=== PATIENT | female | born 1985 | race Caucasian/White ===

== ENCOUNTER → 2021-07-27 12:03 | Outpatient (CLI) | payer OTHER, MEDICAID, SELFPAY ==
[2021-07-27 19:00] LABS: Add Manual Diff / Slide Review NO; Basophils Absolute Auto 0 /uL (0-100); Eosinophils Absolute Auto 100 /uL (0-450); Eosinophils Percent Auto 2.5 % (2-4); Hematocrit 42.1 % (36-46); Hemoglobin 14.3 g/dL (12.0-16.0); Lymphocytes Absolute Auto 1700 /uL (1100-4500); Lymphocytes Percent Auto 36.4 % (25-40); Mean Corpuscular HGB Conc 33.9 % (30-36); Mean Corpuscular Hemoglobin 29.8 PG (26-34); Mean Corpuscular Volume 87.8 fL (80-100); Monocytes Absolute Auto 500 /uL (0-900); Monocytes Percent Auto 10.3 % (3-14); Neutrophils Absolute Auto 2300 /uL (1500-7000); Neutrophils Percent Auto 49.8 % (50-75); Platelet Count 239 X10^3/uL (150-400); Red Blood Cell Count 4.79 X10^6/uL (4.0-5.2); Red Cell Distribution Width 12.2 % (11.6-14.8); White Blood Cell Count 4.6 X10^3/uL (4.5-11.0)
[2021-08-01 17:36] LABS: Methylmalonic Acid,Serum 191 nmol/L (0-378)
== END ==
PROVIDERS: PCP Family Medicine; Visit Provider Physician Assistant
DX: E53.8 Deficiency of other specified B group vitamins (principal)
CPT/HCPCS: 83921; 85025

== ENCOUNTER → 2021-11-11 10:57 | Outpatient (CLI) | payer OTHER, MEDICAID, SELFPAY ==
[2021-11-12 18:51] LABS: Follicle Stimulating Hormone 7.22 mIU/mL; Luteinizing Hormone 4.28 mIU/mL
[2021-11-12 19:07] LABS: TSH w/ Reflex to FT4 0.98 uIU/mL (0.47-4.68)
[2021-11-12 19:36] LABS: Vitamin B12 820 pg/mL (239-931)
[2021-11-12 19:57] LABS: Urine N gonorrhoeae NOT DETECTED
[2021-11-12 20:12] LABS: Urine Chlamydia NOT DETECTED
[2021-11-15 16:55] LABS: HIV 1 & 2 Ab/Ag 4th Gen Combo NEGATIVE (NEGATIVE); Hep C Virus Ab w/Reflex Quant NEGATIVE s/c (NEGATIVE)
[2021-11-15 18:36] LABS: HSV 2 IGG AB < 0.91 index (0.00-0.90); HSV1IGG < 0.91 index (0.00-0.90)
[2021-11-16 01:37] LABS: RPR Screen Non Reactive (Non Reactive)
== END ==
PROVIDERS: PCP Physician Assistant; Visit Provider Physician Assistant Medical
DX: L68.0 Hirsutism (principal); Z11.3 Encounter for screening for infections with a predominantly sexual mode of transmission; N94.9 Unspecified condition associated with female genital organs and menstrual cycle; E53.8 Deficiency of other specified B group vitamins
CPT/HCPCS: 82607; 83001; 83002; 84443; 86592; 86695; 86696; 86803; 87389; 87491; 87591

== ENCOUNTER → 2021-11-15 07:14 | Outpatient (CLI) | payer OTHER, MEDICAID, SELFPAY ==
--- NOTE | 2021-11-15 07:16 | DI.US.S_ITS ---
PROCEDURE: US PELVIC COMPLETE INDICATIONS: CMT TECHNIQUE: Real-time scanning was performed of the pelvic organs, with image documentation. Additional endovaginal scanning was necessary due to incomplete visualization of the adnexal and endometrial structures by transabdominal scanning. COMPARISON: None. FINDINGS: Uterus: Uterus is anteverted and normal in size at 7.0 x 3.8 x 4.8 cm. The myometrium is homogeneous. The endometrium measures 6.3 mm combined thickness. Ovaries: Right and left ovaries measure 4.1 x 2.2 x 2.8 cm and 3.7 x 2.0 x 3.6 cm respectively. Both ovaries have appropriate size, echotexture and vascularity without evidence of torsion or adnexal mass. Other: No pathologic free abdominal or pelvic fluid. IMPRESSION: Unremarkable ultrasound the pelvis Approved by: Yuniel Rodriguez M.D. on 11/15/2021 at 17:08
== END ==
PROVIDERS: PCP Physician Assistant; Referring Provider Physician Assistant Medical; Visit Provider Physician Assistant Medical
DX: N94.9 Unspecified condition associated with female genital organs and menstrual cycle (principal)
CPT/HCPCS: 76830; 76856